=== PATIENT | male | born 1990 | race Two or more races ===

== ENCOUNTER 2020-04-28 18:37 | Emergency (ER) | payer SELFPAY ==
[~2020-04-28] VITALS: Ht 170.2 cm; Wt 68.0 kg
--- NOTE | 2020-04-28 20:17 | Emergency Room Report ---
History of Present Illness General Chief Complaint: General Complaint Source: Patient Present Illness HPI Patient brought in by EMS for reported drug use. Left prior to being seen. I had no interaction with this patient. 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 I had no interaction with this patient. Last Vital Signs Date Time Temp Pulse Resp B/P (MAP) Pulse Ox O2 Delivery O2 Flow Rate FiO2 04/28/20 19:11 97.9 88 16 142/76 (98) 99 Room Air Disposition: LEFT W/OUT BEING SEEN Condition: Unknown Kojo Alford MD Apr 28, 2020 20:17
[2020-04-28 22:40] VITALS: BP 142/76
== END 2020-04-28 22:32 | disposition left against medical advice (07) ==
LOC: EDBD 18:37 → EMR 19:30
DX: Z53.21 Procedure and treatment not carried out due to patient leaving prior to being seen by health care provider (principal)